=== PATIENT | female | born 1970 | race Caucasian/White ===

== ENCOUNTER 2019-09-11 18:02 | Inpatient (IN) | payer MEDICARE ==
[~2019-09-11 18:02] MED LIST: Dexamethasone 20 MG/5 ML VIAL ONE; EPHEDRINE 25 MG/5 ML SYRINGE ONE; Iopamidol 370 76% 50 ML VIAL FS ONE; Iopamidol-370 76% 500 ML 1 ML ONE; Lidocaine 1% PF 5 ML VIAL ONE; Ondansetron PF 4 MG/2 ML Vial ONE; PHENYLEPHRINE-NS 100 MCG/ML 10 ML SYRINGE ONE; PROPOFOL 200 MG/20 ML VIAL ONE; Rocuronium Bromide 10 MG/ML (10ML VIAL) ONE; Succinylcholine Chloride 20 MG/ML 10 ml SYRINGE FS ONE; Vecuronium 10 MG VIAL ONE
[2019-09-11] MEDS ORDERED: Adacel (T-DAP) 0.5 ML SYRINGE ONE (18:16)
[2019-09-11] MEDS ORDERED: Clindamycin/D5W 600 mg/50 ml Premix Bag ONE (18:21)
[2019-09-11 18:32] LABS: Hemoglobin 12.6 g/dL (12.0-16.0); Mean Corpuscular HGB CONC 33.7 g/dL (32.0-36.0); Mean Corpuscular Hemoglobin 33.4 pg (27.0-31.0); Mean Corpuscular Volume 99.2 fL (78.0-98.0); Mean Platelet Volume 6.9 fL (7.4-10.4); Platelet Count 250 thou/uL (130-400); RBC Distribution Width 12.9 % (11.5-14.5); Red Blood Cell (RBC) Count 3.76 mill/uL (4.20-5.40); White Blood Cell (WBC) Count 17.3 thou/uL (4.8-10.8)
[2019-09-11 18:39] LABS: INR-International Normal Ratio 1.1; PTT 22.9 sec (22.9-36.1); Prothrombin Time 14.2 sec (12.0-14.7)
[2019-09-11] MEDS ORDERED: Ketamine 50 MG/ML (10ML VIAL) ONE (18:39)
[2019-09-11 18:56] LABS: ALT (SGPT) 59 U/L (8-55); AST (SGOT) 66 U/L (5-34); Albumin 4.1 g/dL (3.5-5.0); Alkaline Phosphatase 73 U/L (40-110); Anion Gap 17 mmol/L (10-20); BUN (Urea Nitrogen) 11 mg/dL (7.0-18.7); Bilirubin, Total 0.3 mg/dL (0.2-1.2); Calc. Creatinine Clearance 0 mL/min (70-130); Carbon Dioxide 19 mmol/L (22-29); Chloride 106 mmol/L (98-107); Estimated GFR-MDRD 42; Globulin 2.4 g/dL (2.4-3.5); Glucose 141 mg/dL (70-105); Lipase 26 U/L (8-78); Potassium 3.2 mmol/L (3.5-5.1); Protein, Total 6.5 g/dL (6.0-8.3); Sodium 139 mmol/L (136-145)
[2019-09-11 19:14] LABS: Band 2 % (5-11); Eosinophils 1 % (0-10); Lymphocytes 13 % (21-51); Monocytes 5 % (0-10); Neutrophil 79 % (42-75)
[2019-09-11 19:14] LABS: Bacteria/HPF None Seen HPF (None Seen); Bilirubin Negative (Negative); Blood, Urine 2+ (Negative); Clarity Clear (Clear); Glucose, Urine (Dipstick) 50 mg/dL (Negative); Leukocyte 75 Leu/uL (Negative); Nitrite Negative (Negative); Protein, Urine (Dipstick) 30 mg/dL (Neg-Trace); RBC/HPF Greater than 50 HPF (0-3); Squamous Epithelial 0-3 HPF (0-3); Urobilinogen Normal mg/dL (Less than 2); WBC/HPF 21-50 HPF (0-3)
[2019-09-11 19:15] LABS: RBC Morphology Normal
[2019-09-11 19:16] LABS: MDiff Complete? YES
[2019-09-11] MEDS ORDERED: Fentanyl 100 MCG/2 ML VIAL ONE ×2 (19:22→20:59)
[2019-09-11 19:24] LABS: Amphetamine Not Detected (NotDetected); Barbiturates Screen Not Detected (NotDetected); Benzodiazepine Screen Detected (NotDetected); Cocaine Metabolite Screen Not Detected (NotDetected); Medtox Control Line Valid? VALID (VALID); Medtox Reader # READER 4; Methadone Not Detected (NotDetected); Methamphetamine Not Detected (NotDetected); Opiate Screen Not Detected (NotDetected); Oxycodone Screen Not Detected (NotDetected); Phencyclidine (PCP) Not Detected (NotDetected); THC/Cannabinoid Screen Not Detected (NotDetected); Tricyclic Screen Not Detected (NotDetected)
[2019-09-11 19:59] LABS: BHCG - Serum Negative (NEGATIVE); Pregs Control Background? CLEAR/WHITE (CLR/WHITE); Pregs Control Bar Appear? YES (CONTROL BAR)
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
[2019-09-11] MEDS ORDERED: HumaLOG 300 UNITS/3 ML VIAL SC PRN (20:14)
[2019-09-11] MEDS ORDERED: Morphine 2 MG/ML SYRINGE SLOW IVP PRN ×2 (20:14→20:27)
[2019-09-11] MEDS ORDERED: hydrALAZINE 20 MG/ML VIAL SLOW IVP PRN ×2 (20:14)
[2019-09-11] MEDS ORDERED: Dextrose 5% in Water 1,000 ML IV PRN (20:14)
[2019-09-11] MEDS ORDERED: Ondansetron PF 4 MG/2 ML Vial IVP PRN (20:14)
[2019-09-11] MEDS ORDERED: Dextrose 50% Abboject 50 ML SYRINGE SLOW IVP PRN (20:14)
[2019-09-11] MEDS ORDERED: Sodium Chloride 0.9% 1,000 ML IV SCH (20:15)
[2019-09-11 20:17] LABS: Magnesium 2.5 mg/dL (1.6-2.6)
[2019-09-11] MEDS ORDERED: Ventilator Sedation Protocol FS SCH (20:20)
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
[2019-09-11] MEDS ORDERED: Propofol BOLUS 1,000 MG/100 ML VIAL IV PRN (20:27)
[2019-09-11] MEDS ORDERED: Lorazepam 2 MG/ML VIAL SLOW IVP PRN (20:27)
[2019-09-11] MEDS ORDERED: DISCONTINUE PREVIOUS NARCOTIC PAIN MEDICATIONS AND BENZODIAZEPINES FS SCH (20:27)
[2019-09-11] MEDS ORDERED: Propofol 1,000 MG/100 ML VIAL IV PRN (20:27)
[2019-09-11] MEDS ORDERED: fentaNYL Citrate/PF 2,000 MCG in Sodium Chloride 0.9% 60 ML IV SCH (20:27)
[2019-09-11] MEDS ORDERED: Fentanyl BOLUS 250 ML IVPB PRN (20:27)
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
[2019-09-11] MEDS ORDERED: Potassium Phosphate 15 MMOL in Sodium Chloride 0.9% 250 ML 250 ML IVPB SCH (20:30)
[2019-09-11] MEDS ORDERED: Levofloxacin 500 mg/D5W 100 ml Premix Bag ONE (21:04)
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
[2019-09-11] MEDS ORDERED: Vecuronium 10 MG VIAL ONE (21:23)
[2019-09-11] MEDS ORDERED: Fentanyl 250 MCG/5 ML VIAL ONE (21:24)
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
--- NOTE | 2019-09-11 21:37 | RAD ---
PORTABLE CHEST ONE VIEW: 09/11/19 at 5:57 p.m. HISTORY: Central line placement. FINDINGS/IMPRESSION: There has been interval placement of a left subclavian central venous catheter which crosses the midl ine with tip in the projection of the junction of the SVC with the brachiocephalic veins. No pneumot horax is seen. The heart size is normal. POS: [facility]
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
[2019-09-11] MEDS ORDERED: Phenylephrine 10 MG/ML VIAL ONE (22:26)
--- NOTE | 2019-09-11 22:31 | CT ---
CT CHEST WITH IV CONTRAST CT ABDOMEN WITH IV CONTRAST CT PEVLIS WITH IV CONTRAST CORONAL AND SAGITTAL REFORMATIONS OF THE THORACOLUMBAR SPINE. 09/11/19 FINDINGS: No mediastinal hematoma or intimal flap in the aorta is seen to suggest transection. No pleural or pe ricardial effusions are seen. No pneumothoraces or pulmonary contusions are noted. The liver, spleen, pancreas, adrenal glands and kidneys are intact. The gallbladder is intact. There are cysts in the right lobe of the liver measuring 15 and 10 mm respectively. No free air is seen. There is a small amount of free fluid in the pelvis. There is a Woo catheter in the decompressed ur inary bladder. There is a soft tissue hematoma in the pelvis adjacent to the urinary bladder on the l eft. There are fractures involving the left sacrum, left iliac bone, left superior and inferior pubic rami , right inferior pubic ramus and the neck of the right femur with associated foreshortening. There is also a fracture involving the greater trochanter of the right proximal femur. No fracture or subluxation is seen in the thoracolumbar spine. IMPRESSION: 1. No CT evidence of acute intrathoracic or solid organ injury. 2. Fractures involving the pelvic bones and the right proximal femur. 3. Pelvic hematoma adjacent to the decompressed urinary bladder. Bladder injury cannot be exclud ed. Discussed over the telephone with ER physician, Dr. Yan Kc at 7:09 p.m. POS: [facility]
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
[2019-09-11 22:50] LABS: #Lymphocytes 0.9 thou/uL (1.20-3.40); #Monocytes 0.5 thou/uL (0.11-0.59); #Neutrophils 4.5 thou/uL (1.40-6.50); %Eosinophils 0.5 % (0.0-10.0); %Monocytes 8.4 % (0.0-10.0); %Neutrophils 76.1 % (42.0-75.0); Hemoglobin 10.4 g/dL (12.0-16.0); Mean Corpuscular HGB CONC 34.1 g/dL (32.0-36.0); Mean Corpuscular Hemoglobin 30.7 pg (27.0-31.0); Mean Corpuscular Volume 89.8 fL (78.0-98.0); Mean Platelet Volume 6.5 fL (7.4-10.4); Platelet Count 93 thou/uL (130-400); RBC Distribution Width 15.3 % (11.5-14.5); Red Blood Cell (RBC) Count 3.39 mill/uL (4.20-5.40); White Blood Cell (WBC) Count 5.9 thou/uL (4.8-10.8)
[2019-09-11 22:55] LABS: INR-International Normal Ratio 1.2; PTT 29.5 sec (22.9-36.1); Prothrombin Time 15.1 sec (12.0-14.7)
[2019-09-11 23:13] LABS: Anion Gap 10 mmol/L (10-20); BUN (Urea Nitrogen) 10 mg/dL (7.0-18.7); Calc. Creatinine Clearance 0 mL/min (70-130); Calcium 7.3 mg/dL (7.8-10.44); Carbon Dioxide 26 mmol/L (22-29); Chloride 109 mmol/L (98-107); Estimated GFR-MDRD 76; Glucose 122 mg/dL (70-105); Potassium 3.4 mmol/L (3.5-5.1); Sodium 142 mmol/L (136-145)
[2019-09-11] MEDS ORDERED: EPHEDRINE 25 MG/5 ML SYRINGE ONE (23:48)
[2019-09-12] MEDS ORDERED: Albumin 5% 250 ML ONE (00:21)
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
[2019-09-12] MEDS ORDERED: Fentanyl 100 MCG/2 ML VIAL ONE (01:05)
--- NOTE | 2019-09-12 01:39 | OP ---
DATE OF PROCEDURE: 09/11/2019 PREOPERATIVE DIAGNOSIS: Bleeding pelvic fracture. POSTOPERATIVE DIAGNOSIS: Bleeding pelvic fracture. PROCEDURES PERFORMED: 1. Abdominal aortogram. 2. Left common iliac angio. 3. Left internal iliac angio. 4. Embolization of the middle branch of the left internal iliac artery with one 6 x 2.6 coil and four 4 x 2.3 coils. 5. Bilateral ultrasound-guided femoral artery access. ESTIMATED BLOOD LOSS: 50. TOTAL CONTRAST: 24. TOTAL FLUORO TIME: 7.0 minutes. DESCRIPTION OF PROCEDURE: The patient was brought to the analytical lab technician and placed under general anesthesia. Groins were prepped and draped in the usual sterile fashion. Using ultrasound guidance, the left femoral artery was accessed and a 5-Ukrainian sheath placed. A Contra catheter was advanced in the abdominal aorta. Distal aortogram was performed illuminating the pelvic vasculature. On the left, there was a sharp takeoff of the internal iliac artery. The middle branch of the iliac artery had a dissection within it and was compressed and distorted with hematoma. There was no active extravasation. Due to the steepness of the angle, the right groin was accessed using ultrasound guidance and a 5-Ukrainian sheath placed. A Contra catheter was used to cross the aortic bifurcation. Angled Glidewire and glide catheter were used to access the internal iliac artery. Hand-injected arteriogram was performed illuminating the iliac artery showing the area in question in the middle branch. Once the middle branch was accessed with a Glidewire, the catheter was exchanged for a Evans. This Evans catheter was positioned approximately 2 cm distal to the takeoff. Multiple calls were then deployed and packed. Followup angiogram showed an excellent result with no further perfusion of this artery. Hand-injected arteriogram was performed with tip of catheter in the common iliac artery showing good perfusion down the iliac system with no further flow in the middle branch of the internal iliac. Catheters and guidewires were removed. A ProGlide was used to close both groins. Good hemostasis was obtained. The patient was then transferred to the operating room for Dr. Martinez. Job ID: [id number]
[2019-09-12 01:42] VITALS: BMI 27.5
[2019-09-12] MEDS ORDERED: Cyclobenzaprine 10 MG TAB PO PRN (01:42)
[2019-09-12] MEDS ORDERED: traMADol HCl 50 MG TAB PO PRN ×2 (01:42)
[2019-09-12] MEDS: Morphine 4 MG/ML VIAL SLOW IVP PRN ×3 (01:48→06:26)
[2019-09-12] MEDS ORDERED: Calcium Gluc 4.6 MEQ/10 ML (100 MG/ML) SLOW IVP SCH (01:50)
[2019-09-12] MEDS: Sodium Chloride 0.9% 1,000 ML IV SCH ×5 (01:51→16:17)
[2019-09-12] MEDS ORDERED: Potassium Phosphate 15 MMOL in Sodium Chloride 0.9% 250 ML 250 ML IVPB SCH (02:00)
[2019-09-12] MEDS ORDERED: Gabapentin 300 MG CAP PO SCH ×3 (02:00→15:00)
[2019-09-12] MEDS ORDERED: Ketorolac Tromethamine 30 MG/ML VIAL IVP ONE (02:00)
[2019-09-12 02:06] LABS: Hemoglobin 7.8 g/dL (12.0-16.0)
[2019-09-12] MEDS ORDERED: Famotidine 20 MG TAB PO SCH (02:15)
[2019-09-12 02:31] LABS: Magnesium 1.6 mg/dL (1.6-2.6); Phosphorus 4.7 mg/dL (2.3-4.7)
[2019-09-12 02:35] LABS: Anion Gap 11 mmol/L (10-20); BUN (Urea Nitrogen) 13 mg/dL (7.0-18.7); Calc. Creatinine Clearance 94 mL/min (70-130); Calcium 6.7 mg/dL (7.8-10.44); Carbon Dioxide 24 mmol/L (22-29); Chloride 109 mmol/L (98-107); Estimated GFR-MDRD 72; Glucose 174 mg/dL (70-105); Potassium 3.4 mmol/L (3.5-5.1); Sodium 141 mmol/L (136-145)
[2019-09-12 03:08] LABS: #Lymphocytes 0.5 thou/uL (1.20-3.40); #Monocytes 0.4 thou/uL (0.11-0.59); #Neutrophils 5.7 thou/uL (1.40-6.50); %Eosinophils 0.4 % (0.0-10.0); %Lymphocytes 7.8 % (21.0-51.0); %Monocytes 5.9 % (0.0-10.0); %Neutrophils 85.9 % (42.0-75.0); Hemoglobin 7.9 g/dL (12.0-16.0); Mean Corpuscular HGB CONC 35.2 g/dL (32.0-36.0); Mean Corpuscular Hemoglobin 31.7 pg (27.0-31.0); Mean Platelet Volume 6.8 fL (7.4-10.4); RBC Distribution Width 15.5 % (11.5-14.5); Red Blood Cell (RBC) Count 2.48 mill/uL (4.20-5.40); White Blood Cell (WBC) Count 6.6 thou/uL (4.8-10.8)
[2019-09-12 03:12] LABS: Platelet Count 70 thou/uL (130-400)
[2019-09-12] MEDS ORDERED: Acetaminophen 500 MG TAB PO SCH (06:00)
[2019-09-12 06:03] LABS: Lactic Acid 3.3 mmol/L (0.5-2.2)
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
[2019-09-12] MEDS: Clindamycin/D5W 900 MG in Premix Bag 1 BAG IVPB SCH ×3 (06:27→21:57)
[2019-09-12] MEDS ORDERED: Acetaminophen/Codeine 30-300mg Tablet PO PRN (07:18)
[2019-09-12 07:57] LABS: INR-International Normal Ratio 1.4
[2019-09-12 07:58] LABS: Bilirubin Negative (Negative); Blood, Urine 2+ (Negative); Clarity Clear (Clear); Glucose, Urine (Dipstick) 200 mg/dL (Negative); Leukocyte Negative Leu/uL (Negative); Nitrite Negative (Negative); Protein, Urine (Dipstick) 30 mg/dL (Neg-Trace); Squamous Epithelial None Seen HPF (0-3); Urobilinogen Normal mg/dL (Less than 2)
[2019-09-12 07:59] LABS: #Lymphocytes 0.3 thou/uL (1.20-3.40); #Monocytes 0.4 thou/uL (0.11-0.59); #Neutrophils 4.9 thou/uL (1.40-6.50); %Basophils 0.2 % (0.0-1.0); %Eosinophils 0.3 % (0.0-10.0); %Lymphocytes 5.7 % (21.0-51.0); %Monocytes 6.4 % (0.0-10.0); %Neutrophils 87.4 % (42.0-75.0); Hemoglobin 7.3 g/dL (12.0-16.0); Mean Corpuscular HGB CONC 36.1 g/dL (32.0-36.0); Mean Corpuscular Hemoglobin 32.7 pg (27.0-31.0); Mean Corpuscular Volume 90.6 fL (78.0-98.0); Mean Platelet Volume 7.3 fL (7.4-10.4); Platelet Count 55 thou/uL (130-400); RBC Distribution Width 15.7 % (11.5-14.5); Red Blood Cell (RBC) Count 2.22 mill/uL (4.20-5.40); White Blood Cell (WBC) Count 5.6 thou/uL (4.8-10.8)
[2019-09-12 07:59] LABS: Bacteria/HPF 1+ HPF (None Seen)
--- NOTE | 2019-09-12 08:03 | RAD ---
TWO VIEWS OF THE RIGHT KNEE: COMPARISON: Femur radiograph 09/11/2019. History Distal femur fracture. FINDINGS/IMPRESSION: Limited intraoperative fluoroscopic views of the right femur were submitted for interpretation. The patient is status post plate and screw fixation of a fracture of the distal femur. This appears extr aarticular. POS: [facility]
--- NOTE | 2019-09-12 08:04 | RAD ---
TWO VIEWS OF THE RIGHT HIP: COMPARISON: 09/11/2019. HISTORY: Proximal femur fracture. FINDINGS/IMPRESSION: Multiple limited intraoperative fluoroscopic views of the right hip were submitted for interpretation . The patient is status post fixation of the fracture of the right femoral neck. No perihardware angeli cency is seen. POS: [facility]
--- NOTE | 2019-09-12 08:05 | RAD ---
TWO VIEWS OF THE LEFT FEMUR: COMPARISON: None. HISTORY: Status post ORIF femur fracture. FINDINGS/IMPRESSION: Multiple limited intraoperative fluoroscopic views of the left femur were submitted for interpretatio n. The patient is status post retrograde intramedullary ryan fixation of the fractures of the mid por tion of the femur and of the distal femur. No perihardware lucency is seen. POS: [facility]
--- NOTE | 2019-09-12 08:06 | RAD ---
TWO VIEWS OF THE LEFT FOREARM: COMPARISON: 09/11/2019. HISTORY: Forearm fracture status post fixation. FINDINGS/IMPRESSION: Multiple limited intraoperative fluoroscopic views of the left forearm show the patient to be status post plate and screw fixation of the fracture of the mid portion of the radius and ulna. No perihard joseph lucency is seen. POS: EAA
[2019-09-12 08:21] LABS: Anion Gap 11 mmol/L (10-20); BUN (Urea Nitrogen) 14 mg/dL (7.0-18.7); Calc. Creatinine Clearance 84 mL/min (70-130); Carbon Dioxide 24 mmol/L (22-29); Chloride 111 mmol/L (98-107); Estimated GFR-MDRD 63; Glucose 199 mg/dL (70-105); Magnesium 1.7 mg/dL (1.6-2.6); Phosphorus 5.6 mg/dL (2.3-4.7); Potassium 4.1 mmol/L (3.5-5.1); Sodium 142 mmol/L (136-145)
[2019-09-12 08:27] LABS: Lactic Acid 5.2 mmol/L (0.5-2.2)
[2019-09-12] MEDS ORDERED: Calcium Chloride 13.6 MEQ in Sodium Chloride 0.9% 100 ML IVPB SCH (08:30)
[2019-09-12] MEDS ORDERED: Calcium Chloride 1 GM/10 ML Abboject SYRINGE IVP SCH (08:30)
[2019-09-12] MEDS ORDERED: Magnesium 2 GM/50 ML 2 GM in Premix Bag 1 BAG IVPB SCH (08:30)
[2019-09-12] MEDS: Senokot S 8.6-50 MG TAB PO SCH ×2 (08:58→20:53)
[2019-09-12] MEDS: Polyethylene Glycol 3350 17 GM Packet PO SCH (08:58)
[2019-09-12] MEDS ORDERED: Pantoprazole 40 MG VIAL IVP SCH (09:00)
[2019-09-12] MEDS ORDERED: Polyethylene Glycol 3350 17 GM Packet PO SCH (09:00)
[2019-09-12] MEDS ORDERED: Ibuprofen 600 MG TAB PO PRN (09:00)
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
[2019-09-12] MEDS: Acetaminophen 325 MG TAB PO SCH ×3 (12:52→22:45)
[2019-09-12 15:15] LABS: #Lymphocytes 0.5 thou/uL (1.20-3.40); #Monocytes 0.7 thou/uL (0.11-0.59); #Neutrophils 5.9 thou/uL (1.40-6.50); %Basophils 0.5 % (0.0-1.0); %Eosinophils 0.3 % (0.0-10.0); %Lymphocytes 7.3 % (21.0-51.0); %Monocytes 10.2 % (0.0-10.0); %Neutrophils 81.6 % (42.0-75.0); Hemoglobin 8.4 g/dL (12.0-16.0); Mean Corpuscular HGB CONC 35.2 g/dL (32.0-36.0); Mean Corpuscular Hemoglobin 31.6 pg (27.0-31.0); Mean Corpuscular Volume 89.9 fL (78.0-98.0); Mean Platelet Volume 8.4 fL (7.4-10.4); Platelet Count 57 thou/uL (130-400); RBC Distribution Width 15.7 % (11.5-14.5); Red Blood Cell (RBC) Count 2.67 mill/uL (4.20-5.40); White Blood Cell (WBC) Count 7.2 thou/uL (4.8-10.8)
[2019-09-12 15:30] LABS: Lactic Acid 3.5 mmol/L (0.5-2.2)
[2019-09-12 15:35] LABS: Anion Gap 12 mmol/L (10-20); BUN (Urea Nitrogen) 15 mg/dL (7.0-18.7); Calc. Creatinine Clearance 89 mL/min (70-130); Calcium 7.5 mg/dL (7.8-10.44); Carbon Dioxide 23 mmol/L (22-29); Chloride 111 mmol/L (98-107); Estimated GFR-MDRD 67; Glucose 151 mg/dL (70-105); Magnesium 2.4 mg/dL (1.6-2.6); Phosphorus 4.5 mg/dL (2.3-4.7); Potassium 4.7 mmol/L (3.5-5.1); Sodium 141 mmol/L (136-145)
[2019-09-12] MEDS: Acetaminophen/Codeine 30-300mg Tablet PO PRN ×2 (16:15→22:45)
[2019-09-12] MEDS: Gabapentin 100 MG CAP PO SCH ×2 (16:15→20:52)
[2019-09-12] MEDS: Ferrous Sulfate 325 MG TAB PO SCH (16:16)
[2019-09-12] MEDS: busPIRone HCl 5 MG TAB PO SCH ×2 (16:16→20:53)
[2019-09-12] MEDS ORDERED: Sodium Chloride 0.9% 1,000 ML IV SCH (17:30)
[2019-09-12] MEDS: Cyclobenzaprine 10 MG TAB PO PRN (19:37)
[2019-09-12] MEDS: levETIRAcetam 500 MG TAB PO SCH (20:52)
[2019-09-12] MEDS: Famotidine 20 MG TAB PO SCH (20:53)
[2019-09-12] MEDS: Ascorbic Acid 500 mg Chewable Tablet PO SCH (20:53)
[2019-09-13] MEDS: Morphine 4 MG/ML VIAL SLOW IVP PRN ×3 (02:10→17:58)
[2019-09-13] MEDS: Sodium Chloride 0.9% 1,000 ML IV SCH ×3 (02:11→17:27)
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
[2019-09-13 05:01] LABS: #Lymphocytes 1.1 thou/uL (1.20-3.40); #Monocytes 0.8 thou/uL (0.11-0.59); #Neutrophils 4.5 thou/uL (1.40-6.50); %Basophils 0.2 % (0.0-1.0); %Eosinophils 0.2 % (0.0-10.0); %Lymphocytes 17.1 % (21.0-51.0); %Monocytes 11.9 % (0.0-10.0); %Neutrophils 70.5 % (42.0-75.0); Hemoglobin 6.3 g/dL (12.0-16.0); Mean Corpuscular HGB CONC 35.8 g/dL (32.0-36.0); Mean Corpuscular Hemoglobin 32.4 pg (27.0-31.0); Mean Corpuscular Volume 90.5 fL (78.0-98.0); Mean Platelet Volume 8.4 fL (7.4-10.4); Platelet Count 51 thou/uL (130-400); Red Blood Cell (RBC) Count 1.93 mill/uL (4.20-5.40); White Blood Cell (WBC) Count 6.4 thou/uL (4.8-10.8)
[2019-09-13 05:12] LABS: Anion Gap 9 mmol/L (10-20); BUN (Urea Nitrogen) 12 mg/dL (7.0-18.7); Calc. Creatinine Clearance 95 mL/min (70-130); Calcium 6.9 mg/dL (7.8-10.44); Carbon Dioxide 24 mmol/L (22-29); Chloride 111 mmol/L (98-107); Estimated GFR-MDRD 73; Glucose 124 mg/dL (70-105); Magnesium 2.2 mg/dL (1.6-2.6); Phosphorus 2.1 mg/dL (2.3-4.7); Potassium 4.1 mmol/L (3.5-5.1); Sodium 140 mmol/L (136-145)
[2019-09-13] MEDS: Acetaminophen 325 MG TAB PO SCH ×4 (06:02→23:30)
[2019-09-13] MEDS: Acetaminophen/Codeine 30-300mg Tablet PO PRN ×3 (06:02→21:51)
[2019-09-13] MEDS: Clindamycin/D5W 900 MG in Premix Bag 1 BAG IVPB SCH ×3 (06:03→21:51)
[2019-09-13] MEDS: Cyclobenzaprine 10 MG TAB PO PRN ×2 (06:05→20:01)
[2019-09-13] MEDS ORDERED: Sodium Phosphate 30 MMOL in Sodium Chloride 0.9% 250 ML 250 ML IVPB SCH (07:45)
[2019-09-13] MEDS ORDERED: Calcium Chloride 1 GM/10 ML Abboject SYRINGE IVP SCH (07:45)
[2019-09-13] MEDS: Ascorbic Acid 500 mg Chewable Tablet PO SCH ×2 (08:59→20:01)
[2019-09-13] MEDS: Senokot S 8.6-50 MG TAB PO SCH ×2 (08:59→20:00)
[2019-09-13] MEDS: levETIRAcetam 500 MG TAB PO SCH ×2 (08:59→20:01)
[2019-09-13] MEDS: Ferrous Sulfate 325 MG TAB PO SCH ×2 (08:59→18:00)
[2019-09-13] MEDS: Famotidine 20 MG TAB PO SCH ×2 (09:00→20:00)
[2019-09-13] MEDS: Polyethylene Glycol 3350 17 GM Packet PO SCH (09:00)
[2019-09-13] MEDS: Gabapentin 100 MG CAP PO SCH ×3 (09:00→20:02)
[2019-09-13] MEDS: busPIRone HCl 5 MG TAB PO SCH ×3 (09:11→20:02)
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
[2019-09-13 21:23] LABS: Hemoglobin 7.3 g/dL (12.0-16.0); Platelet Count 92 thou/uL (130-400)
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
[2019-09-14] MEDS: Sodium Chloride 0.9% 1,000 ML IV SCH (02:00)
[2019-09-14] MEDS: Acetaminophen/Codeine 30-300mg Tablet PO PRN ×4 (03:10→20:48)
[2019-09-14] MEDS: Acetaminophen 325 MG TAB PO SCH ×3 (04:34→17:48)
[2019-09-14] MEDS: Clindamycin/D5W 900 MG in Premix Bag 1 BAG IVPB SCH (06:03)
[2019-09-14 06:20] LABS: #Eosinphils 0.1 thou/uL (0.0-0.7); #Lymphocytes 0.7 thou/uL (1.20-3.40); #Monocytes 0.4 thou/uL (0.11-0.59); #Neutrophils 3.8 thou/uL (1.40-6.50); %Basophils 0.2 % (0.0-1.0); %Eosinophils 1.5 % (0.0-10.0); %Lymphocytes 14.5 % (21.0-51.0); %Monocytes 7.3 % (0.0-10.0); %Neutrophils 76.5 % (42.0-75.0); Hemoglobin 8.4 g/dL (12.0-16.0); Mean Corpuscular HGB CONC 34.9 g/dL (32.0-36.0); Mean Corpuscular Hemoglobin 32.1 pg (27.0-31.0); Mean Corpuscular Volume 92.1 fL (78.0-98.0); Mean Platelet Volume 7.8 fL (7.4-10.4); Platelet Count 73 thou/uL (130-400); RBC Distribution Width 14.2 % (11.5-14.5); Red Blood Cell (RBC) Count 2.61 mill/uL (4.20-5.40); White Blood Cell (WBC) Count 4.9 thou/uL (4.8-10.8)
[2019-09-14 06:51] LABS: Anion Gap 7 mmol/L (10-20); BUN (Urea Nitrogen) 6 mg/dL (7.0-18.7); Calc. Creatinine Clearance 121 mL/min (70-130); Calcium 7.2 mg/dL (7.8-10.44); Carbon Dioxide 27 mmol/L (22-29); Chloride 112 mmol/L (98-107); Estimated GFR-MDRD Greater than 90; Glucose 100 mg/dL (70-105); Magnesium 2.1 mg/dL (1.6-2.6); Phosphorus 1.6 mg/dL (2.3-4.7); Potassium 3.5 mmol/L (3.5-5.1); Sodium 142 mmol/L (136-145)
[2019-09-14] MEDS ORDERED: Potassium Phosphate 15 MMOL in Sodium Chloride 0.9% 250 ML 250 ML IVPB SCH (07:30)
[2019-09-14] MEDS: Ferrous Sulfate 325 MG TAB PO SCH ×2 (08:23→17:48)
[2019-09-14] MEDS: Ascorbic Acid 500 mg Chewable Tablet PO SCH ×2 (08:24→20:47)
[2019-09-14] MEDS: Senokot S 8.6-50 MG TAB PO SCH ×2 (08:24→20:48)
[2019-09-14] MEDS: Polyethylene Glycol 3350 17 GM Packet PO SCH (08:24)
[2019-09-14] MEDS: levETIRAcetam 500 MG TAB PO SCH ×2 (08:24→20:47)
[2019-09-14] MEDS: busPIRone HCl 5 MG TAB PO SCH ×3 (08:25→20:47)
[2019-09-14] MEDS ORDERED: Gabapentin 100 MG CAP PO SCH (08:25)
[2019-09-14] MEDS: Famotidine 20 MG TAB PO SCH ×2 (08:27→20:47)
[2019-09-14] MEDS ORDERED: Sodium Phosphate 15 MMOL in Sodium Chloride 0.9% 250 ML 250 ML IVPB SCH (08:30)
[2019-09-14] MEDS: Enoxaparin Sodium 30 MG/0.3 ML SYRINGE SC SCH ×2 (08:33→20:47)
[2019-09-14] MEDS: Gabapentin 300 MG CAP PO SCH ×3 (08:34→20:48)
[2019-09-14] MEDS: Cyclobenzaprine 10 MG TAB PO PRN ×2 (09:52→17:48)
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
[2019-09-14] MEDS: Morphine 4 MG/ML VIAL SLOW IVP PRN (21:03)
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
[2019-09-15] MEDS: Acetaminophen 325 MG TAB PO SCH ×5 (02:27→23:14)
[2019-09-15] MEDS: Acetaminophen/Codeine 30-300mg Tablet PO PRN ×3 (02:59→22:14)
[2019-09-15] MEDS: Cyclobenzaprine 10 MG TAB PO PRN ×2 (02:59→22:09)
[2019-09-15 06:10] LABS: #Eosinphils 0.1 thou/uL (0.0-0.7); #Lymphocytes 0.9 thou/uL (1.20-3.40); #Monocytes 0.4 thou/uL (0.11-0.59); #Neutrophils 4.5 thou/uL (1.40-6.50); %Basophils 0.5 % (0.0-1.0); %Eosinophils 1.6 % (0.0-10.0); %Lymphocytes 15.5 % (21.0-51.0); %Monocytes 6.7 % (0.0-10.0); %Neutrophils 75.7 % (42.0-75.0); Hemoglobin 7.2 g/dL (12.0-16.0); Mean Corpuscular HGB CONC 34.7 g/dL (32.0-36.0); Mean Corpuscular Hemoglobin 32.2 pg (27.0-31.0); Mean Corpuscular Volume 92.8 fL (78.0-98.0); Mean Platelet Volume 8.1 fL (7.4-10.4); Platelet Count 81 thou/uL (130-400); RBC Distribution Width 14.4 % (11.5-14.5); Red Blood Cell (RBC) Count 2.22 mill/uL (4.20-5.40); White Blood Cell (WBC) Count 5.9 thou/uL (4.8-10.8)
[2019-09-15 06:28] LABS: Anion Gap 5 mmol/L (10-20); BUN (Urea Nitrogen) 9 mg/dL (7.0-18.7); Calc. Creatinine Clearance 127 mL/min (70-130); Calcium 7.3 mg/dL (7.8-10.44); Carbon Dioxide 28 mmol/L (22-29); Chloride 111 mmol/L (98-107); Estimated GFR-MDRD Greater than 90; Glucose 94 mg/dL (70-105); Magnesium 1.9 mg/dL (1.6-2.6); Phosphorus 2.3 mg/dL (2.3-4.7); Potassium 3.4 mmol/L (3.5-5.1); Sodium 141 mmol/L (136-145)
[2019-09-15] MEDS ORDERED: Clindamycin/D5W 900 MG in Premix Bag 1 BAG IVPB SCH ×2 (07:15→22:00)
[2019-09-15] MEDS: Polyethylene Glycol 3350 17 GM Packet PO SCH (07:55)
[2019-09-15] MEDS: Ferrous Sulfate 325 MG TAB PO SCH ×2 (07:55→17:06)
[2019-09-15] MEDS: Ascorbic Acid 500 mg Chewable Tablet PO SCH ×2 (07:55→22:12)
[2019-09-15] MEDS: Senokot S 8.6-50 MG TAB PO SCH ×2 (07:56→22:12)
[2019-09-15] MEDS: busPIRone HCl 5 MG TAB PO SCH ×3 (08:30→22:10)
[2019-09-15] MEDS: levETIRAcetam 500 MG TAB PO SCH ×2 (08:30→22:11)
[2019-09-15] MEDS: Famotidine 20 MG TAB PO SCH ×2 (08:34→22:53)
[2019-09-15] MEDS: Gabapentin 300 MG CAP PO SCH ×3 (08:34→22:11)
[2019-09-15] MEDS ORDERED: Potassium Phosphate 30 MMOL, Magnesium Sulfate 2 GM in Sodium Chloride 0.9% 250 ML 250 ML IVPB SCH (09:30)
[2019-09-15] MEDS: Morphine 4 MG/ML VIAL SLOW IVP PRN ×3 (10:13→22:15)
[2019-09-15] MEDS ORDERED: PROPOFOL 200 MG/20 ML VIAL ONE (11:22)
[2019-09-15] MEDS ORDERED: Lidocaine 1% PF 5 ML VIAL ONE (11:22)
[2019-09-15] MEDS ORDERED: Ondansetron PF 4 MG/2 ML Vial ONE (11:22)
[2019-09-15] MEDS ORDERED: Dexamethasone 20 MG/5 ML VIAL ONE (11:22)
[2019-09-15] MEDS ORDERED: Rocuronium Bromide 10 MG/ML (10ML VIAL) ONE (11:22)
[2019-09-15] MEDS ORDERED: PHENYLEPHRINE-NS 100 MCG/ML 10 ML SYRINGE ONE ×2 (11:22→15:21)
[2019-09-15] MEDS ORDERED: Levofloxacin 500 mg/D5W 100 ml Premix Bag ONE (13:30)
[2019-09-15] MEDS ORDERED: Clindamycin/D5W 900 mg/50 ml Premix Bag ONE (13:35)
[2019-09-15] MEDS ORDERED: Lidocaine 2% Jelly 5 ML TUBE ONE (13:43)
[2019-09-15] MEDS ORDERED: Fentanyl 100 MCG/2 ML VIAL ONE ×3 (13:43→16:11)
[2019-09-15] MEDS ORDERED: Promethazine HCl 25 MG/ML VIAL SLOW IVP PRN (16:04)
[2019-09-15] MEDS ORDERED: Promethazine HCl 25 MG/ML VIAL IM PRN (16:04)
[2019-09-15] MEDS ORDERED: HYDROmorphone 2 MG/ML VIAL SLOW IVP PRN (16:04)
[2019-09-15] MEDS ORDERED: Ondansetron HCl/PF 4 MG/2 ML Vial IVP PRN (16:04)
--- NOTE | 2019-09-15 17:07 | RAD ---
2 fluoroscopic spot images of the left SI joint INDICATION: Intraoperative left SI joint percutaneous pinning COMPARISON: Prior CT of the abdomen and pelvis dated September 13, 2019 FINDINGS: Since the comparison examination there is been interval placement of a fully threaded left SI joint screw transfixing the left ilium and sacrum. The left ilium, left sacral ala, left superior pubic ramus and left pubic body fractures are not appreciably changed in position and alignm ent from the comparison exam. There are endovascular coils seen within the left hemipelvis. There is a temperature probe seen within the region of the bladder. Total fluoroscopic time was 226 seconds . Total exposure was 153.15 mGy. Impression: Interval left SI joint percutaneous pinning. Left sacral ala and left ilial fractures are not appreciably changed in position. Left superior pubic ramus and left pubic body fractures are unchanged.
[2019-09-15 17:10] LABS: Hemoglobin 7.5 g/dL (12.0-16.0)
[2019-09-15] MEDS: Enoxaparin Sodium 30 MG/0.3 ML SYRINGE SC SCH (22:12)
[2019-09-16] MEDS: Acetaminophen/Codeine 30-300mg Tablet PO PRN (04:05)
[2019-09-16] MEDS: Morphine 4 MG/ML VIAL SLOW IVP PRN (04:07)
[2019-09-16 04:45] LABS: #Lymphocytes 0.5 thou/uL (1.20-3.40); #Monocytes 0.4 thou/uL (0.11-0.59); #Neutrophils 3.6 thou/uL (1.40-6.50); %Eosinophils 0.3 % (0.0-10.0); %Lymphocytes 10.1 % (21.0-51.0); %Monocytes 9.5 % (0.0-10.0); %Neutrophils 80.2 % (42.0-75.0); Hemoglobin 8.2 g/dL (12.0-16.0); Mean Corpuscular HGB CONC 33.4 g/dL (32.0-36.0); Mean Corpuscular Hemoglobin 31.2 pg (27.0-31.0); Mean Corpuscular Volume 93.6 fL (78.0-98.0); Mean Platelet Volume 8.4 fL (7.4-10.4); Platelet Count 94 thou/uL (130-400); RBC Distribution Width 14.7 % (11.5-14.5); Red Blood Cell (RBC) Count 2.62 mill/uL (4.20-5.40); White Blood Cell (WBC) Count 4.5 thou/uL (4.8-10.8)
[2019-09-16 04:56] LABS: Anion Gap 8 mmol/L (10-20); BUN (Urea Nitrogen) 10 mg/dL (7.0-18.7); Calc. Creatinine Clearance 133 mL/min (70-130); Calcium 7.4 mg/dL (7.8-10.44); Carbon Dioxide 26 mmol/L (22-29); Chloride 108 mmol/L (98-107); Estimated GFR-MDRD Greater than 90; Glucose 140 mg/dL (70-105); Potassium 4.2 mmol/L (3.5-5.1); Sodium 138 mmol/L (136-145)
[2019-09-16] MEDS: Acetaminophen 325 MG TAB PO SCH ×4 (05:18→23:35)
[2019-09-16] MEDS: Cyclobenzaprine 10 MG TAB PO PRN ×3 (06:55→23:34)
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
[2019-09-16] MEDS: Enoxaparin Sodium 30 MG/0.3 ML SYRINGE SC SCH ×2 (09:41→20:05)
[2019-09-16] MEDS: Polyethylene Glycol 3350 17 GM Packet PO SCH (09:41)
[2019-09-16] MEDS: levETIRAcetam 500 MG TAB PO SCH ×2 (09:42→20:06)
[2019-09-16] MEDS: busPIRone HCl 5 MG TAB PO SCH ×3 (09:42→20:06)
[2019-09-16] MEDS: Ferrous Sulfate 325 MG TAB PO SCH ×2 (09:42→18:07)
[2019-09-16] MEDS: Gabapentin 300 MG CAP PO SCH ×3 (09:42→20:06)
[2019-09-16] MEDS: Ascorbic Acid 500 mg Chewable Tablet PO SCH ×2 (09:42→20:06)
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
[2019-09-16] MEDS: Famotidine 20 MG TAB PO SCH ×2 (09:47→20:06)
[2019-09-16] MEDS: Senokot S 8.6-50 MG TAB PO SCH ×2 (09:50→20:06)
[2019-09-16] MEDS ORDERED: HYDROcodone/Acetaminophen 10/325 mg Tablet PO SCH (12:00)
[2019-09-16] MEDS: HYDROcodone/Acetaminophen 10/325 mg Tablet PO SCH ×2 (15:49→23:34)
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
[2019-09-17] MEDS: Acetaminophen 325 MG TAB PO SCH ×4 (05:05→23:51)
[2019-09-17] MEDS: HYDROcodone/Acetaminophen 10/325 mg Tablet PO SCH ×4 (05:05→23:51)
[2019-09-17] MEDS: busPIRone HCl 5 MG TAB PO SCH ×3 (08:36→21:03)
[2019-09-17] MEDS: Senokot S 8.6-50 MG TAB PO SCH ×2 (08:37→21:02)
[2019-09-17] MEDS: Ascorbic Acid 500 mg Chewable Tablet PO SCH ×2 (08:38→21:02)
[2019-09-17] MEDS: Ferrous Sulfate 325 MG TAB PO SCH ×2 (08:38→17:33)
[2019-09-17] MEDS: Gabapentin 300 MG CAP PO SCH ×3 (08:38→21:02)
[2019-09-17] MEDS: levETIRAcetam 500 MG TAB PO SCH ×2 (08:39→21:02)
[2019-09-17] MEDS: Polyethylene Glycol 3350 17 GM Packet PO SCH (08:40)
[2019-09-17] MEDS: Enoxaparin Sodium 30 MG/0.3 ML SYRINGE SC SCH ×2 (08:40→21:06)
[2019-09-17] MEDS: Famotidine 20 MG TAB PO SCH (08:40)
[2019-09-17] MEDS ORDERED: Diazepam 5 MG TAB PO PRN (11:44)
[2019-09-17] MEDS: Cyclobenzaprine 10 MG TAB PO PRN (11:58)
[2019-09-17] MEDS: Ibuprofen 600 MG TAB PO SCH ×2 (14:03→21:02)
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
[2019-09-18] MEDS: Acetaminophen 325 MG TAB PO SCH ×3 (05:53→18:09)
[2019-09-18] MEDS: HYDROcodone/Acetaminophen 10/325 mg Tablet PO SCH ×3 (05:53→18:09)
[2019-09-18] MEDS: Ibuprofen 600 MG TAB PO SCH ×3 (05:53→20:56)
[2019-09-18] MEDS: Cyclobenzaprine 10 MG TAB PO PRN ×3 (06:01→23:11)
[2019-09-18 06:29] LABS: Band 2 % (5-11); Eosinophils 4 % (0-10); Hemoglobin 6.7 g/dL (12.0-16.0); Hypochromia SLIGHT = 6-15 cells (100X) (0-5/hpf); Lymphocytes 25 % (21-51); MDiff Complete? YES; Mean Corpuscular HGB CONC 33.9 g/dL (32.0-36.0); Mean Corpuscular Hemoglobin 32.5 pg (27.0-31.0); Mean Corpuscular Volume 95.9 fL (78.0-98.0); Mean Platelet Volume 8.1 fL (7.4-10.4); Metamyelocyte 1 % (0-0); Monocytes 4 % (0-10); Neutrophil 64 % (42-75); Platelet Count 197 thou/uL (130-400); Platelet Morphology Comment Appears Adequate; RBC Distribution Width 15.7 % (11.5-14.5); Red Blood Cell (RBC) Count 2.07 mill/uL (4.20-5.40); White Blood Cell (WBC) Count 7.5 thou/uL (4.8-10.8)
[2019-09-18 06:34] LABS: Anion Gap 7 mmol/L (10-20); BUN (Urea Nitrogen) 11 mg/dL (7.0-18.7); Calc. Creatinine Clearance 138 mL/min (70-130); Calcium 7.7 mg/dL (7.8-10.44); Carbon Dioxide 26 mmol/L (22-29); Chloride 108 mmol/L (98-107); Estimated GFR-MDRD Greater than 90; Glucose 88 mg/dL (70-105); Magnesium 1.9 mg/dL (1.6-2.6); Phosphorus 2.7 mg/dL (2.3-4.7); Potassium 3.9 mmol/L (3.5-5.1); Sodium 137 mmol/L (136-145)
[2019-09-18] MEDS ORDERED: PHOS-NAK 1 PKT PACK PO SCH (08:15)
[2019-09-18] MEDS ORDERED: Magnesium 2 GM/50 ML 2 GM in Premix Bag 1 BAG IVPB SCH (08:15)
[2019-09-18 08:29] LABS: Hemoglobin 6.6 g/dL (12.0-16.0); Mean Corpuscular HGB CONC 32.6 g/dL (32.0-36.0); Mean Corpuscular Hemoglobin 31.8 pg (27.0-31.0); Mean Corpuscular Volume 97.4 fL (78.0-98.0); Mean Platelet Volume 7.9 fL (7.4-10.4); Platelet Count 189 thou/uL (130-400); RBC Distribution Width 15.7 % (11.5-14.5); Red Blood Cell (RBC) Count 2.08 mill/uL (4.20-5.40); White Blood Cell (WBC) Count 6.7 thou/uL (4.8-10.8)
[2019-09-18] MEDS: levETIRAcetam 500 MG TAB PO SCH ×2 (09:30→20:54)
[2019-09-18] MEDS: Enoxaparin Sodium 30 MG/0.3 ML SYRINGE SC SCH (09:30)
[2019-09-18] MEDS: Senokot S 8.6-50 MG TAB PO SCH ×2 (09:32→20:56)
[2019-09-18] MEDS: busPIRone HCl 5 MG TAB PO SCH ×3 (09:32→20:53)
[2019-09-18] MEDS: Ascorbic Acid 500 mg Chewable Tablet PO SCH ×2 (09:33→20:54)
[2019-09-18] MEDS: Polyethylene Glycol 3350 17 GM Packet PO SCH (09:33)
[2019-09-18] MEDS: Gabapentin 300 MG CAP PO SCH ×3 (09:33→20:54)
[2019-09-18] MEDS: Ferrous Sulfate 325 MG TAB PO SCH ×2 (09:33→18:09)
[2019-09-18] MEDS: traZODone HCl 50 MG TAB PO SCH ×2 (09:34→20:59)
[2019-09-18] MEDS: Diazepam 5 MG TAB PO PRN ×2 (10:14→23:11)
[2019-09-18] MEDS: Atomoxetine Hcl 40 MG PO SCH (11:13)
[2019-09-18] MEDS ORDERED: Bisacodyl 10 MG SUPP PR PRN (19:54)
[2019-09-18 21:45] LABS: Hemoglobin 8.6 g/dL (12.0-16.0); Platelet Count 222 thou/uL (130-400)
[2019-09-18] MEDS: diphenhydrAMINE 25 MG CAP PO PRN (23:10)
[2019-09-19] MEDS: Acetaminophen 325 MG TAB PO SCH ×3 (00:01→12:43)
[2019-09-19] MEDS: HYDROcodone/Acetaminophen 10/325 mg Tablet PO SCH ×4 (00:01→13:19)
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
[2019-09-19] MEDS: Ibuprofen 600 MG TAB PO SCH ×2 (05:30→13:19)
[2019-09-19 05:46] LABS: #Eosinphils 0.5 thou/uL (0.0-0.7); #Lymphocytes 1.1 thou/uL (1.20-3.40); #Monocytes 0.9 thou/uL (0.11-0.59); #Neutrophils 4.8 thou/uL (1.40-6.50); %Basophils 0.2 % (0.0-1.0); %Eosinophils 6.3 % (0.0-10.0); %Lymphocytes 15.6 % (21.0-51.0); %Monocytes 11.6 % (0.0-10.0); %Neutrophils 66.3 % (42.0-75.0); Hemoglobin 8.5 g/dL (12.0-16.0); Mean Corpuscular Hemoglobin 31.8 pg (27.0-31.0); Mean Corpuscular Volume 93.8 fL (78.0-98.0); Mean Platelet Volume 8.1 fL (7.4-10.4); Platelet Count 239 thou/uL (130-400); RBC Distribution Width 15.4 % (11.5-14.5); Red Blood Cell (RBC) Count 2.67 mill/uL (4.20-5.40); White Blood Cell (WBC) Count 7.3 thou/uL (4.8-10.8)
[2019-09-19] MEDS: diphenhydrAMINE 25 MG CAP PO PRN (06:35)
[2019-09-19] MEDS: Cyclobenzaprine 10 MG TAB PO PRN ×2 (06:35→12:43)
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
[2019-09-19] MEDS ORDERED: PHOS-NAK 1 PKT PACK PO SCH (08:15)
[2019-09-19] MEDS ORDERED: Enoxaparin Sodium 40 MG/0.4 ML SYRINGE SC SCH (09:00)
[2019-09-19] MEDS: busPIRone HCl 5 MG TAB PO SCH (09:30)
[2019-09-19] MEDS: Ascorbic Acid 500 mg Chewable Tablet PO SCH (09:31)
[2019-09-19] MEDS: levETIRAcetam 500 MG TAB PO SCH (09:31)
[2019-09-19] MEDS: Ferrous Sulfate 325 MG TAB PO SCH (09:32)
[2019-09-19] MEDS: Gabapentin 300 MG CAP PO SCH (09:32)
[2019-09-19] MEDS: Senokot S 8.6-50 MG TAB PO SCH (09:33)
[2019-09-19] MEDS: Polyethylene Glycol 3350 17 GM Packet PO SCH (09:33)
[2019-09-19] MEDS: Atomoxetine Hcl 40 MG PO SCH (10:17)
[2019-09-19 10:44] VITALS: BP 96/61; TEMP 98.5
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
[2019-09-19] MEDS ORDERED: traZODone HCl 50 MG TAB PO SCH (21:00)
== END 2019-09-19 13:48 | disposition swing bed (61) | DRG 956 ==
LOC: ERS 18:02 → CCU 19:25 → SDC/OP 19:51 → CCU 20:14 → MERGE 20:14 → SURG A 09-13 19:34
PROVIDERS: ADMIT Specialist; ATTEND Specialist
PROC: 0QSC06Z Reposition Left Lower Femur with Intramedullary Internal Fixation Device, Open Approach (ICD-10-PCS; principal; 2019-09-11)
PROC: 0PSJ04Z Reposition Left Radius with Internal Fixation Device, Open Approach (ICD-10-PCS; 2019-09-11)
PROC: 0PSL04Z Reposition Left Ulna with Internal Fixation Device, Open Approach (ICD-10-PCS; 2019-09-11)
PROC: 0QSB04Z Reposition Right Lower Femur with Internal Fixation Device, Open Approach (ICD-10-PCS; 2019-09-11)
PROC: 0QS604Z Reposition Right Upper Femur with Internal Fixation Device, Open Approach (ICD-10-PCS; 2019-09-11)
PROC: 04LF3DZ Occlusion of Left Internal Iliac Artery with Intraluminal Device, Percutaneous Approach (ICD-10-PCS; 2019-09-11)
PROC: 05H633Z Insertion of Infusion Device into Left Subclavian Vein, Percutaneous Approach (ICD-10-PCS; 2019-09-11)
PROC: B410YZZ Fluoroscopy of Abdominal Aorta using Other Contrast (ICD-10-PCS; 2019-09-11)
PROC: B41CYZZ Fluoroscopy of Pelvic Arteries using Other Contrast (ICD-10-PCS; 2019-09-11)
PROC: 30233L1 Transfusion of Nonautologous Fresh Plasma into Peripheral Vein, Percutaneous Approach (ICD-10-PCS; 2019-09-11)
PROC: 30233N1 Transfusion of Nonautologous Red Blood Cells into Peripheral Vein, Percutaneous Approach (ICD-10-PCS; 2019-09-11)
PROC: 30233K1 Transfusion of Nonautologous Frozen Plasma into Peripheral Vein, Percutaneous Approach (ICD-10-PCS; 2019-09-11)
PROC: 30233R1 Transfusion of Nonautologous Platelets into Peripheral Vein, Percutaneous Approach (ICD-10-PCS; 2019-09-13)
PROC: 0QJY3ZZ Inspection of Lower Bone, Percutaneous Approach (ICD-10-PCS; 2019-09-15)
DX: S72.302A Unspecified fracture of shaft of left femur, initial encounter for closed fracture (principal); S32.302A Unspecified fracture of left ilium, initial encounter for closed fracture; T79.4XXA Traumatic shock, initial encounter; S52.92XB Unspecified fracture of left forearm, initial encounter for open fracture type I or II; S72.001A Fracture of unspecified part of neck of right femur, initial encounter for closed fracture; S52.202B Unspecified fracture of shaft of left ulna, initial encounter for open fracture type I or II; S35.512A Injury of left iliac artery, initial encounter; S32.10XA Unspecified fracture of sacrum, initial encounter for closed fracture; S32.592A Other specified fracture of left pubis, initial encounter for closed fracture; S32.591A Other specified fracture of right pubis, initial encounter for closed fracture; D62 Acute posthemorrhagic anemia; S72.402A Unspecified fracture of lower end of left femur, initial encounter for closed fracture; S30.0XXA Contusion of lower back and pelvis, initial encounter; R40.2413 Glasgow coma scale score 13-15, at hospital admission; S06.0X0A Concussion without loss of consciousness, initial encounter; E83.39 Other disorders of phosphorus metabolism; E83.42 Hypomagnesemia; E83.51 Hypocalcemia; F19.90 Other psychoactive substance use, unspecified, uncomplicated; Z72.89 Other problems related to lifestyle; Z88.0 Allergy status to penicillin; Z88.1 Allergy status to other antibiotic agents; Z88.2 Allergy status to sulfonamides; V89.2XXA Person injured in unspecified motor-vehicle accident, traffic, initial encounter
CPT/HCPCS: 36415; 36416; 36430; 37244; 51702; 70450; 71045; 71260; 72125; 72170; 72202; 74176; 74177; 76000; 76942; 80048; 80053; 80306; 80307; 81001; 81003; 81015; 82533; 83605; 83690; 83735; 84100; 84703; 85014; 85018; 85025; 85610; 85730; 86850; 86900; 86901; 90471; 90715; 93005; 94760; 96365; 96375; 96376; C1713; C1760; G0390; J0690; J1100; J1644; J1650; J1885; J1956; J2001; J2270; J2370; J2405; J2704; J3010; J3475; J3490; J7050; P9016; P9035; P9045; P9048; P9059; Q0163; Q9967

== ENCOUNTER 2020-03-29 07:00 | Outpatient (CLI) | payer MEDICARE ==
[2020-03-30 02:09] LABS: SARS-CoV-2 MS2 Positive; SARS-CoV-2 N Gene Negative; SARS-CoV-2 S Gene Negative; SARS-CoV-2 by NAA Not Detected (NotDetected); SARS-CoV-2 orf1ab Negative
== END 2020-03-29 07:01 | disposition home or self-care (01) ==
LOC: LABBT 07:00
PROVIDERS: ATTEND Orthopaedic Surgery
DX: Z01.812 Encounter for preprocedural laboratory examination (principal); T85.848A Pain due to other internal prosthetic devices, implants and grafts, initial encounter; Z20.828 Contact with and (suspected) exposure to other viral communicable diseases
CPT/HCPCS: 87635; U0003

== ENCOUNTER 2020-03-31 10:09 | Day surgery (SDC) | payer MEDICARE ==
[2020-03-29 11:30] VITALS: BMI 22.4
[2020-03-31] MEDS ORDERED: Clindamycin/D5W 900 mg/50 ml Premix Bag ONE (10:26)
[2020-03-31] MEDS ORDERED: Levofloxacin 500 mg/D5W 100 ml Premix Bag ONE (10:26)
[2020-03-31] MEDS ORDERED: Lidocaine 1% PF 5 ML VIAL ONE (11:47)
[2020-03-31] MEDS ORDERED: Dexamethasone 20 MG/5 ML VIAL ONE (11:47)
[2020-03-31] MEDS ORDERED: Ondansetron PF 4 MG/2 ML Vial ONE (11:47)
[2020-03-31] MEDS ORDERED: PROPOFOL 200 MG/20 ML VIAL ONE (11:47)
[2020-03-31] MEDS ORDERED: Ketorolac Tromethamine 30 MG/ML VIAL ONE (11:47)
[2020-03-31] MEDS ORDERED: Midazolam HCl 2 mg/2 ml Vial ONE ×2 (12:18→13:10)
[2020-03-31] MEDS ORDERED: Fentanyl 100 MCG/2 ML VIAL ONE ×4 (13:10→14:53)
[2020-03-31] MEDS ORDERED: Bupivacaine PF 0.5% 30 ML VIAL ONE (13:42)
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
[2020-03-31] MEDS ORDERED: HYDROcodone/Acetaminophen 5/325 mg Tablet ONE (16:13)
--- NOTE | 2020-03-31 16:45 | RAD ---
Right knee 2 views intraoperative fluoroscopy HISTORY: Hardware removal. FINDINGS: Intraoperative fluoroscopy was provided for hardware removal as performed by Dr. Martinez. Spot fluoroscopic images of the knees show absence of metallic hardware with lucencies consistent with prior screw sites. Fluoroscopy time 4.0 seconds.
== END 2020-03-31 16:54 | disposition home or self-care (01) ==
LOC: SDC 10:09
PROVIDERS: ATTEND Orthopaedic Surgery
PROC: 0YP90YZ Removal of Other Device from Right Lower Extremity, Open Approach (ICD-10-PCS; principal; 2020-03-31)
DX: T84.84XA Pain due to internal orthopedic prosthetic devices, implants and grafts, initial encounter (principal); G40.909 Epilepsy, unspecified, not intractable, without status epilepticus; F90.9 Attention-deficit hyperactivity disorder, unspecified type; D64.9 Anemia, unspecified; M81.0 Age-related osteoporosis without current pathological fracture; Z79.899 Other long term (current) drug therapy; Z88.0 Allergy status to penicillin; Z88.1 Allergy status to other antibiotic agents; Z88.2 Allergy status to sulfonamides; Z88.5 Allergy status to narcotic agent; Z88.8 Allergy status to other drugs, medicaments and biological substances; Z91.040 Latex allergy status; Z91.048 Other nonmedicinal substance allergy status
CPT/HCPCS: 76000; J1100; J1885; J1956; J2250; J2405; J2704; J3010; J3490; S0020

== ENCOUNTER 2021-12-26 13:27 | Outpatient (CLI) | payer MEDICARE | END 2021-12-26 13:28 | disposition home or self-care (01) | LOC: BICMAMMO 13:27 | PROVIDERS: ATTEND Registered Nurse | DX: Z12.31 Encounter for screening mammogram for malignant neoplasm of breast (principal); M85.89 Other specified disorders of bone density and structure, multiple sites; Z78.0 Asymptomatic menopausal state; Z80.3 Family history of malignant neoplasm of breast; Z98.890 Other specified postprocedural states; Z85.828 Personal history of other malignant neoplasm of skin | CPT/HCPCS: 77063; 77067; 77080 ==

== ENCOUNTER 2023-02-09 13:54 | Outpatient (CLI) | payer MEDICARE | END 2023-02-09 13:55 | disposition home or self-care (01) | LOC: BICMAMMO 13:54 | PROVIDERS: ATTEND Registered Nurse | DX: Z12.31 Encounter for screening mammogram for malignant neoplasm of breast (principal); Z85.828 Personal history of other malignant neoplasm of skin; Z80.3 Family history of malignant neoplasm of breast; Z98.890 Other specified postprocedural states | CPT/HCPCS: 77063; 77067 ==

== ENCOUNTER 2025-02-06 07:03 | Day surgery (SDC) | payer MEDICARE ==
[2025-02-06 08:04] LABS: #Basophils 0.04 10x3/uL (0.0-0.2); #Eosinophils 0.11 10x3/uL (0.0-0.7); #Monocytes 0.90 10x3/uL (0.11-0.59); #Neutrophils 3.79 10x3/uL (1.40-6.50); %Basophils 0.6 % (0.0-1.0); %Eosinophils 1.7 % (0.0-10.0); %Lymphocytes 26.6 % (21.0-51.0); %Monocytes 13.5 % (0.0-10.0); %Neutrophils 57.0 % (42.0-75.0); Hematocrit 39.6 % (36.0-47.0); Hemoglobin 12.8 g/dL (12.0-16.0); Mean Corpuscular Hemoglobin 35.3 pg (27.0-31.0); Mean Corpuscular Volume 109.1 fL (78.0-98.0); Platelet Count 288 10x3/uL (130-400); Red Blood Cell (RBC) Count 3.63 mill/uL (4.20-5.40); White Blood Cell (WBC) Count 6.65 10x3/uL (4.8-10.8)
[2025-02-06 08:18] LABS: INR-International Normal Ratio 0.9; PTT 26.0 sec (22.9-36.1); Prothrombin Time 11.9 sec (12.0-14.7)
[2025-02-06] MEDS ORDERED: Sodium Bicarbonate 2.5 MEQ/5 ML SDV ONE (09:08)
[2025-02-06] MEDS ORDERED: Lidocaine 1% w/Epinephrine 1:100K 20 ML VIAL ONE (09:08)
== END 2025-02-06 13:21 | disposition home or self-care (01) ==
LOC: ULT 07:03
PROVIDERS: ATTEND Internal Medicine Gastroenterology
PROC: 0FB23ZX Excision of Left Lobe Liver, Percutaneous Approach, Diagnostic (ICD-10-PCS; principal; 2025-02-06)
DX: R79.89 Other specified abnormal findings of blood chemistry (principal); F32.A Depression, unspecified; E78.5 Hyperlipidemia, unspecified; E78.00 Pure hypercholesterolemia, unspecified; E04.2 Nontoxic multinodular goiter; F90.2 Attention-deficit hyperactivity disorder, combined type; Z88.1 Allergy status to other antibiotic agents; Z91.040 Latex allergy status; Z90.710 Acquired absence of both cervix and uterus; Z88.0 Allergy status to penicillin; Z88.2 Allergy status to sulfonamides; Z88.8 Allergy status to other drugs, medicaments and biological substances; Z79.899 Other long term (current) drug therapy
CPT/HCPCS: 36000; 47000; 76942; 85025; 85610; 85730; J2250; J3010; 88307; 99152; 99153